=== PATIENT | female | born 1970 | race Caucasian/White ===

== ENCOUNTER 2018-04-10 12:27 | Emergency (ER) | payer MEDICAID ==
--- NOTE | 2018-04-10 15:50 | EDM.PDOC ---
ED HPI GENERAL MEDICAL PROBLEM - General Chief Complaint: Respiratory Problem Stated Complaint: SOB/ SEIZURES Time Seen by Provider: 04/10/18 15:48 Source of Information: Reports: Patient History Limitations: Reports: No Limitations - History of Present Illness INITIAL COMMENTS - FREE TEXT/NARRATIVE: pt has had a number of episodes today where she has felt like she had her seizures, She feels like her brain is numb. She is sob and feels weak and tired. Onset: Today, Other (pt has a history of puesdo seizures. ) Duration: Hour(s): Location: Reports: Chest Associated Symptoms: Reports: Confusion, Shortness of Breath - Related Data Allergies Allergy/AdvReac Type Severity Reaction Status Date / Time Penicillins Allergy Airway Verified 05/13/15 16:51 Tightness Sulfa (Sulfonamide Allergy Airway Verified 05/13/15 16:51 Antibiotics) Tightness Home Meds: Home Meds Albuterol Sulfate 2 puff IN ASDIRECTED PRN 07/05/15 [History] Aspirin 325 mg PO DAILY 07/05/15 [History] Oxybutynin Chloride 10 mg PO DAILY 07/05/15 [History] Simvastatin 20 mg PO BEDTIME 07/05/15 [History] Latanoprost/Pf [Latanoprost 0.005% Eye Drop] 1 drop EYEBOTH BEDTIME 04/10/18 [ History] Magnesium Oxide [Magnesium] 400 mg PO BEDTIME 04/10/18 [History] Omeprazole 20 mg PO DAILY 04/10/18 [History] Sertraline HCl 50 mg PO DAILY 04/10/18 [History] Venlafaxine HCl [Venlafaxine ER] 75 mg PO DAILY 04/10/18 [History] Verapamil [Calan SR] 120 mg PO DAILY 04/10/18 [History] hydrOXYzine pamoate [Hydroxyzine Pamoate] 25 - 50 mg PO BEDTIME PRN 04/10/18 [ History] traZODone 150 mg PO BEDTIME 04/10/18 [History] Social & Family History - Tobacco Use Smoking Status *Q: Never Smoker - Caffeine Use Caffeine Use: Reports: None - Recreational Drug Use Recreational Drug Use: No ED ROS GENERAL - Review of Systems Review Of Systems: See Below Constitutional: Reports: No Symptoms, Weakness, Fatigue HEENT: Reports: No Symptoms Respiratory: Reports: Shortness of Breath Cardiovascular: Reports: No Symptoms Endocrine: Reports: No Symptoms GI/Abdominal: Reports: No Symptoms : Reports: No Symptoms ED EXAM, GENERAL - Physical Exam Exam: See Below Free Text/Narrative:: pt was having periods whrn her brain felt numb and like she was having the seizures, She was feeling a little lite headed. She does not have a true headache. Exam Limited By: No Limitations General Appearance: Alert, Anxious, Other (pupils are equal and reactive. ) Ears: Normal TMs Nose: Normal Inspection Throat/Mouth: Normal Inspection Head: Atraumatic Neck: Normal Inspection Respiratory/Chest: No Respiratory Distress Cardiovascular: Regular Rate, Rhythm GI/Abdominal: Soft, Non-Tender (Female) Exam: Deferred Rectal (Female) Exam: Deferred Back Exam: Normal Inspection Extremities: Normal Inspection Neurological: Alert, Oriented, Normal Cognition, Other ( She felt like she was having periods of vagueness or as she described it that her brain was numb. ) Psychiatric: Normal Affect Course - Vital Signs Last Recorded V/S: Last Vital Signs Temp 36.0 C 04/10/18 13:05 Pulse 93 04/10/18 13:05 Resp 16 04/10/18 13:05 BP 154/99 H 04/10/18 13:05 Pulse Ox 92 L 04/10/18 13:05 - Orders/Labs/Meds Orders: Active Orders 24 hr Category Date Time Status Head wo Cont [CT] Stat Exams 04/10/18 16:43 Taken UA W/MICROSCOPIC [URIN] Urgent Lab 04/10/18 15:45 Ordered Labs: Laboratory Tests 04/10/18 04/10/18 04/10/18 Range/Units 15:45 15:45 15:46 WBC 6.3 (4.5-11.0) K/uL RBC 4.89 (3.30-5.50) M/uL Hgb 11.6 L (12.0-15.0) g/dL Hct 37.4 (36.0-48.0) % MCV 77 L (80-98) fL MCH 24 L (27-31) pg MCHC 31 L (32-36) % Plt Count 279 (150-400) K/uL Neut % (Auto) 55 (36-66) % Lymph % (Auto) 31 (24-44) % [place] % (Auto) 9 H (2-6) % Eos % (Auto) 5 H (2-4) % Baso % (Auto) 1 (0-1) % Puncture Site Rt.radial ABG pH 7.452 H (7.350-7.450) ABG pCO2 36.8 (35.0-42.0) mmHg ABG pO2 92.9 (75.0-100.0) mmHg ABG HCO3 25.3 (22.0-26.0) mmol/L ABG Total CO2 23.0 (21.0-25.0) mmol/L ABG O2 Saturation 95.8 (95.0-98.0) % ABG O2 Content 14.6 L (15.0-23.0) %vol ABG Base Excess 1.9 mm/L ABG Hemoglobin 11.0 L (12.0-16.0) g/dL ABG Oxyhemoglobin 94.1 % ABG Carboxyhemoglobin 0.1 (0.0-1.6) % ABG Methemoglobin 1.7 % Kd Test Passed O2 Delivery Device Room air Sodium 141 (140-148) mmol/L Potassium 3.8 (3.6-5.2) mmol/L Chloride 103 (100-108) mmol/L Carbon Dioxide 28 (21-32) mmol/L Anion Gap 10.0 (5.0-14.0) mmol/L BUN 14 (7-18) mg/dL Creatinine 1.2 H (0.6-1.0) mg/dL Est Cr Clr Drug Dosing 40.73 mL/min Estimated GFR (MDRD) 48 L (>60) Glucose 110 H (74-106) mg/dL Calcium 9.0 (8.5-10.1) mg/dL Total Bilirubin 0.3 (0.2-1.0) mg/dL AST 50 H (15-37) U/L ALT 70 (12-78) U/L Alkaline Phosphatase 121 H (46-116) U/L Total Protein 7.4 (6.4-8.2) g/dL Albumin 3.6 (3.4-5.0) g/dL Globulin 3.8 H (2.3-3.5) g/dL Albumin/Globulin Ratio 1.0 L (1.2-2.2) - Re-Assessments/Exams Free Text/Narrative Re-Assessment/Exam: 04/10/18 18:34 Pt was found to have normal labs. Her cat ascan of the head was normal. Departure - Departure Time of Disposition: 18:34 Disposition: Home, Self-Care 01 Condition: Fair Clinical Impression: Episodes of decreased attentiveness, Dehydration - Discharge Information Referrals: Juan Brown MD [Primary Care Provider] - Forms: ED Department Discharge Care Plan Goals: follow up with Dr Brown, reschedule appt for the resp test she was to have today, push fluids. - My Orders Last 24 Hours: My Active Orders 04/10/18 15:45 UA W/MICROSCOPIC [URIN] Urgent 04/10/18 16:43 Head wo Cont [CT] Stat - Assessment/Plan Last 24 Hours: My Active Orders 04/10/18 15:45 UA W/MICROSCOPIC [URIN] Urgent 04/10/18 16:43 Head wo Cont [CT] Stat
== END 2018-04-10 18:45 | disposition home or self-care (01) ==
LOC: JP.ED 12:27
DX: R41.840 Attention and concentration deficit (principal); E86.0 Dehydration; Z88.2 Allergy status to sulfonamides; Z79.82 Long term (current) use of aspirin; Z88.0 Allergy status to penicillin; Z79.899 Other long term (current) drug therapy
CPT/HCPCS: 36415; 36600; 70450; 80053; 82803; 85025; 99284-25

== ENCOUNTER 2021-03-14 13:31 | Emergency (ER) | payer MEDICAID ==
[2021-03-14] MEDS ORDERED: Aspirin 81 MG Tab.Chew PO ONE (15:08)
[2021-03-14] MEDS ORDERED: Ketorolac 30 MG/ML SDV IM ONE (15:09)
--- NOTE | 2021-03-14 15:11 | EDM.PDOC ---
ED HPI GENERAL MEDICAL PROBLEM - General Chief Complaint: Cardiovascular Problem Stated Complaint: HEART PROBLEMS Time Seen by Provider: 03/14/21 15:04 Source of Information: Reports: Patient, Family, RN Notes Reviewed History Limitations: Reports: No Limitations - History of Present Illness INITIAL COMMENTS - FREE TEXT/NARRATIVE: 50-year-old female presents emergency department day complaint of chest pain, she states that chest pain for 1 week it is progressively gotten worse pain is relatively constant has not gotten any breaks is predominantly in the left side of her chest no nausea no vomiting no shortness of breath. No heart history. The reason she presented the emergency department now is that the pain has gotten worse. Left Upper Chest Pain Score (Numeric/FACES): 6 - Related Data Allergies Allergy/AdvReac Type Severity Reaction Status Date / Time Penicillins Allergy Airway Verified 03/14/21 14:47 Tightness Sulfa (Sulfonamide Allergy Airway Verified 03/14/21 14:47 Antibiotics) Tightness Home Meds: Home Meds Aspirin 325 mg PO DAILY 07/05/15 [History] Oxybutynin Chloride [Ditropan Xl] 10 mg PO DAILY 07/05/15 [History] Simvastatin [Zocor] 20 mg PO BEDTIME 07/05/15 [History] Latanoprost/Pf [Latanoprost 0.005% Eye Drop] 1 drop EYEBOTH BEDTIME 04/10/18 [History] Omeprazole 20 mg PO DAILY 04/10/18 [History] Sertraline HCl 50 mg PO DAILY 04/10/18 [History] Verapamil [Calan SR] 120 mg PO DAILY 04/10/18 [History] hydrOXYzine pamoate [Hydroxyzine Pamoate] 25 - 50 mg PO BEDTIME PRN 04/10/18 [History] traZODone 150 mg PO BEDTIME 04/10/18 [History] Montelukast [Singulair] 10 mg PO DAILY 03/14/21 [History] Naproxen 500 mg PO TID PRN 03/14/21 [History] lisinopriL [Lisinopril] 5 mg PO DAILY 03/14/21 [History] metFORMIN [Glucophage] 500 mg PO BIDMEALS 03/14/21 [History] Past Medical History HEENT History: Reports: Hard of Hearing, Impaired Vision Cardiovascular History: Reports: High Cholesterol, Hypertension Respiratory History: Reports: Asthma Gastrointestinal History: Reports: GERD, Irritable Bowel Syndrome 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: Musculoskeletal History: Reports: Fracture Psychiatric History: Reports: Depression Endocrine/Metabolic History: Reports: Diabetes, Type II - Past Surgical History Musculoskeletal Surgical History: Reports: ORIF Social & Family History - Tobacco Use Tobacco Use Status *Q: Never Tobacco User Second Hand Smoke Exposure: No - Caffeine Use Caffeine Use: Reports: None - Recreational Drug Use Recreational Drug Use: No ED ROS GENERAL - Review of Systems Review Of Systems: See Below Constitutional: Reports: No Symptoms HEENT: Reports: No Symptoms Respiratory: Reports: No Symptoms Cardiovascular: Reports: Chest Pain GI/Abdominal: Reports: No Symptoms ED EXAM, GENERAL - Physical Exam Exam: See Below Exam Limited By: No Limitations General Appearance: Alert, WD/WN, No Apparent Distress Respiratory/Chest: No Respiratory Distress, Lungs Clear, Normal Breath Sounds, No Accessory Muscle Use, Other (Chest tender to palpation over the left breast) Cardiovascular: Regular Rate, Rhythm, No Murmur GI/Abdominal: Soft, Non-Tender #1 Interpretation EKG Date: 03/14/21 Time: 15:11 Rhythm: NSR Amity: Normal P-Wave: Present QRS: Normal ST-T: Normal QT: Normal Comparison: NA - No Prior EKG Course - Vital Signs Last Recorded V/S: Last Vital Signs Temp 97.8 F 03/14/21 14:56 Pulse 93 03/14/21 14:56 Resp 15 03/14/21 14:56 BP 129/87 03/14/21 14:56 Pulse Ox 96 03/14/21 14:56 - Orders/Labs/Meds Orders: Active Orders 24 hr Category Date Time Status Cardiac Monitoring [RC] .As Directed Care 03/14/21 15:08 Active EKG 12 Lead [EK] Stat Ther 03/14/21 15:08 Ordered Labs: Laboratory Tests 03/14/21 03/14/21 Range/Units 15:20 15:20 WBC 7.2 (4.5-11.0) K/uL RBC 4.96 (3.30-5.50) M/uL Hgb 11.0 L (12.0-15.0) g/dL Hct 36.1 (36.0-48.0) % MCV 73 L (80-98) fL MCH 22 L (27-31) pg MCHC 31 L (32-36) % Plt Count 259 (150-400) K/uL Neut % (Auto) 59.0 (36-66) % Lymph % (Auto) 26.7 (24-44) % [place] % (Auto) 11.3 H (2-6) % Eos % (Auto) 2.9 (2-4) % Baso % (Auto) 0.1 (0-1) % Sodium 138 L (140-148) mmol/L Potassium 4.0 (3.6-5.2) mmol/L Chloride 102 (100-108) mmol/L Carbon Dioxide 26 (21-32) mmol/L Anion Gap 14.0 (5.0-14.0) mmol/L BUN 19 H (7-18) mg/dL Creatinine 1.2 H (0.6-1.0) mg/dL Est Cr Clr Drug Dosing 39.39 mL/min Estimated GFR (MDRD) 47 L (>60) Glucose 118 H (74-106) mg/dL Calcium 8.8 (8.5-10.1) mg/dL Total Bilirubin 0.2 (0.2-1.0) mg/dL AST 26 (15-37) U/L ALT 45 (12-78) U/L Alkaline Phosphatase 99 (46-116) U/L Troponin I < 0.017 (0.000-0.056) ng/mL Total Protein 7.0 (6.4-8.2) g/dL Albumin 3.3 L (3.4-5.0) g/dL Globulin 3.7 H (2.3-3.5) g/dL Albumin/Globulin Ratio 0.9 L (1.2-2.2) Meds: Medications Discontinued Medications Generic Name Dose Route Start Last Admin Trade Name Freq PRN Reason Stop Dose Admin Aspirin 324 mg 03/14/21 15:03/14/21 15:22 Aspirin 81 Mg Tab.Chew PO 03/14/21 15:09 324 mg ONETIME ONE Administration Ketorolac Tromethamine 30 mg 03/14/21 15:03/14/21 15:22 Ketorolac 30 Mg/Ml Sdv IM 03/14/21 15:10 30 mg ONETIME ONE Administration Departure - Departure Time of Disposition: 16:30 Disposition: Home, Self-Care 01 Condition: Fair Clinical Impression: Chest wall pain Instructions: Chest Wall Pain, [id number] Referrals: PCP,None [Primary Care Provider] - Forms: ED Department Discharge Additional Instructions: Continue symptomatic care, please followup with your primary care provider in 3-5 days if not better, please call return to the emergency department with worsening of symptoms. Sepsis Event Note (ED) - Evaluation Sepsis Screening Result: No Definite Risk - Focused Exam Vital Signs: Vital Signs Temp Pulse Resp BP Pulse Ox 03/14/21 14:56 97.8 F 93 15 129/87 96 - My Orders Last 24 Hours: My Active Orders 03/14/21 15:08 Cardiac Monitoring [RC] .As Directed EKG 12 Lead [EK] Stat - Assessment/Plan Last 24 Hours: My Active Orders 03/14/21 15:08 Cardiac Monitoring [RC] .As Directed EKG 12 Lead [EK] Stat Plan: Assessment Acuity = acute Site and laterality = chest wall pain Etiology = unknown Manifestations = none Location of injury = Home Lab values = hemoglobin low 11.0 consistent normochromic anemia creatinine elevated 1.2 consistent chronic renal failure stage G3 a troponin was negative EKG unremarkable chest x-ray no acute process Plan She had good relief with Toradol provided in the emergency department follow-up primary care 3 to 5 days if not better This note was dictated using [employer] voice recognition software please call with any questions on syntax or grammar.
--- NOTE | 2021-03-14 16:06 | CR ---
CHEST: 2 view CLINICAL HISTORY:Chest pain COMPARISON:2010 FINDINGS: The heart size, pulmonary vascularity and hilar structures are normal. No infiltrate effusion or pneumothorax is seen. IMPRESSION: No acute cardiopulmonary process.
== END 2021-03-14 16:56 | disposition home or self-care (01) ==
LOC: JP.ED 13:31
DX: R07.89 Other chest pain (principal); I10 Essential (primary) hypertension; E78.00 Pure hypercholesterolemia, unspecified; J45.909 Unspecified asthma, uncomplicated; K21.9 Gastro-esophageal reflux disease without esophagitis; E11.9 Type 2 diabetes mellitus without complications; Z88.0 Allergy status to penicillin; Z88.2 Allergy status to sulfonamides; Z79.82 Long term (current) use of aspirin; Z79.84 Long term (current) use of oral hypoglycemic drugs; Z79.899 Other long term (current) drug therapy
CPT/HCPCS: 36415; 71046; 80053; 84484; 85025; 93005; 96372; 99285; A9270; J1885

== ENCOUNTER 2024-06-17 08:32 | Day surgery (SDC) | payer MEDICAID ==
[2024-06-17] MEDS ORDERED: Propofol 200 MG/20 ML SDV ONE (09:45)
[2024-06-17] MEDS ORDERED: fentaNYL 100 MCG/2 ML SDV ONE (09:45)
[2024-06-17] MEDS: Lactated Ringers 1,000 ML IV SCH (10:10)
== END 2024-06-17 12:50 | disposition home or self-care (01) ==
LOC: JP.SDS 08:32
PROVIDERS: ATTEND Surgery
DX: R10.13 Epigastric pain (principal); K21.9 Gastro-esophageal reflux disease without esophagitis; E11.9 Type 2 diabetes mellitus without complications; E78.5 Hyperlipidemia, unspecified
CPT/HCPCS: 43239; J2704; J3010; J7120